=== PATIENT | female | born 1985 | race Caucasian/White ===

== ENCOUNTER 2016-07-31 11:27 | Inpatient (IN) | payer OTHER ==
[~2016-07-31] VITALS: Ht 170.2 cm; Wt 93.4 kg
[~2016-07-31 11:27] MED LIST: ADDERALL20 MG PO; ADDERALL30 MG PO; ADVIL,NUPRIN,M200 MG PO; AMBIEN10 MG; AMPHETAMINE SAL30 MG PO; ATARAX,VISTARIL25 MG PO; ATARAX,VISTARIL50 MG PO; AZITHROMYCIN250 MG1 PO; Adderall XR PO; BENTYL20 MG PO; CEFDINIR300 MG PO; CELEXA20 MG PO; CLARITIN10 MG PO; CLEOCIN150 MG PO; CLINDAMYCIN HC300 MG PO; CLONAZEPAM1 MG PO; COLACE100 MG PO; CYMBALTA60 MG PO; EFFEXOR25 MG PO; Flexeril PO; GABAPENTIN300 MG PO; GABAPENTIN800 MG PO; HALOPERIDOL5 MG PO; IMODIUM MS REL1 EACH PO; KLONOPIN1 M2 PO; KLONOPIN1 MG PO; KlonoPIN PO; LEVOTHYROXINE75 MCG PO; LYRICA75 MG PO; Levothroid,Synthroid PO; Medrol PO; Motrin PO; NAPROSYN500 MG PO; NATALCARE RX1 TABLET PO; NEURONTIN300 MG PO; NOHOMEMEDS; NORCO 5/3251 TABLET PO; OXYCODONE5 MG PO; OxyCODONE PO; PEPCID40 MG PO; PEPTO BISMOL240 ML PO; PREDNISONE20 MG PO; PRENATABS RX T1 EACH PO; PROZAC20 MG PO; Proventil,Ventolin H IH; RISPERDAL1 MG PO; SEROQUEL400 MG PO; SYNTHROID100 MCG PO; SYNTHROID75 MCG PO; Seroquel PO; TOPAMAX25 MG PO; TOPAMAX50 MG PO; TOPIRAMATE50 MG PO; ULTRACET1 TABLET PO; ULTRAM50 MG PO; VALIUM10 MG PO; VENTOLIN HFA18 GM; VENTOLIN HFA18 GM IH; WESTCORT15 G1 TP; XANAX1 MG PO; ZITHROMAX TRI-500 MG PO; ZOFRAN ODT4 MG PO; oxyCODONE PO
[2016-07-31 12:10] LABS: BASOPHIL COUNT 0.1 K/uL (0-0.1); EOSINOPHIL (%) 1.4 % (0-5); EOSINOPHIL COUNT 0.1 K/uL (0-0.3); HEMATOCRIT 43.1 % (36.0-46.0); IMMATURE GRANULOCYTE (%) 0.2 % (0.0-0.7); IMMATURE GRANULOCYTE COUNT 0.2 K/uL; LYMPHOCYTE COUNT 1.5 K/uL (1.0-2.8); MCHC 33.9 G/DL (30.0-36.0); MCV 88.7 FL (83-99); MEAN PLAT.VOLUME 11.6 uM^3 (9.5-12.4); MONOCYTE (%) 8.2 % (3-12); MONOCYTE COUNT 0.7 K/uL (0-0.8); NEUTROPHIL (%) 71.3 % (45-76); NEUTROPHIL COUNT 5.7 K/uL (1.8-6.4); PLATELET COUNT 170 K/uL (156-360); RBC DIS.WIDTH-CV 13.1 % (11.8-14.6); RBC DIS.WIDTH-SD 41.8 % (39-53); RED BLOOD COUNT 4.86 M/uL (3.80-5.20)
[2016-07-31 12:24] LABS: CHLORIDE 100 mEq/L (99-109); POTASSIUM 3.7 mEq/L (3.7-5.4); SODIUM 137 mEq/L (136-147)
[2016-07-31 12:27] LABS: D-DIMER ELISA 0.63 mg/L FEU (< 0.57); GLUCOSE 108 mg/dL (70-99)
[2016-07-31 12:28] LABS: ANION GAP 14 MEQ/L (2-14)
[2016-07-31 12:29] LABS: TOTAL BILIRUBIN 0.6 mg/dL (0.0-1.0)
[2016-07-31 12:30] LABS: ALKALINE PHOSPHATASE 47 IU/L (3-129); GFR ESTIMATE (CALCULATED) > 59 mL/min/
[2016-07-31 12:31] LABS: UREA NITROGEN (BUN) 7 mg/dL (9-23)
[2016-07-31 12:35] LABS: TROP-I INTERPRETATION NEGATIVE; TROPONIN-I < 0.01 ng/mL (0.0-0.30)
[2016-07-31] MEDS ORDERED: NEURONTIN400 MG PO (15:41)
[2016-07-31] MEDS ORDERED: PREDNISONE10 MG PO (15:43)
[2016-07-31] MEDS ORDERED: BENADRYL25 MG PO (15:44)
[2016-07-31] MEDS ORDERED: SYNTHROID100 MCG PO (15:44)
[2016-07-31] MEDS ORDERED: ADVIL,NUPRIN,M200 MG PO (15:44)
[2016-07-31] MEDS ORDERED: PROAIR HFA8.5 GM IH (15:45)
[2016-07-31] MEDS ORDERED: [UNRECOGNIZED DRUG - OTHER] TP (15:48)
[2016-07-31 20:38] VITALS: BP 128/70
[2016-07-31 22:25] LABS: INFLUENZA A VIRAL ANTIGEN NEGATIVE; INFLUENZA B VIRAL ANTIGEN NEGATIVE
[2016-07-31 23:13] LABS: METH RESISTANT S AUREUS PCR NEGATIVE (NEGATIVE)
[2016-07-31 23:14] LABS: PROBE CHECK PASS; SPECIMEN PROCESSING CONTROL PASS
[2016-07-31 23:41] LABS: ADD MIUA? NO; BILIRUBIN NEGATIVE; BLOOD NEGATIVE; COLOR YELLOW ((YELLOW)); GLUCOSE (STRIP) >=1000; KETONES NEGATIVE; LEUKOCYTES NEGATIVE; NITRITE NEGATIVE; PH, URINE 5.5 (5-8); PROTEIN (STRIP) NEGATIVE; UCUL ADDED? NO; UROBILINOGEN 0.2 MG/DL (0.2-1.0)
[2016-08-01] VITALS (8 sets, daily range): BP systolic 95–145; BP diastolic 54–72
[2016-08-01 06:23] LABS: CHLORIDE 106 MEQ/L (99-109); GFR ESTIMATE (CALCULATED) > 59 mL/min/; GLUCOSE 143 mg/dL (70-99); POTASSIUM 4.2 MEQ/L (3.7-5.4); SODIUM 139 MEQ/L (136-147); TOTAL BILIRUBIN 0.3 MG/DL (0.0-1.0); UREA NITROGEN (BUN) 7 mg/dL (9-23)
[2016-08-01 06:24] LABS: ALKALINE PHOSPHATASE 39 IU/L (3-129); ANION GAP 11 MEQ/L (2-14); EOSINOPHIL (%) 0 % (0-5); HEMATOCRIT 38.5 % (36.0-46.0); IMMATURE GRANULOCYTE (%) 0.3 % (0.0-0.7); LYMPHOCYTE COUNT 0.9 K/uL (1.0-2.8); MCH 30.1 PG (29.0-34.0); MCHC 32.7 G/DL (30.0-36.0); MCV 91.9 FL (83-99); MEAN PLAT.VOLUME 12.4 uM^3 (9.5-12.4); MONOCYTE (%) 3.7 % (3-12); MONOCYTE COUNT 0.4 K/uL (0-0.8); NEUTROPHIL (%) 87.8 % (45-76); NEUTROPHIL COUNT 9.4 K/uL (1.8-6.4); PLATELET COUNT 177 K/uL (156-360); RBC DIS.WIDTH-CV 13.5 % (11.8-14.6); RBC DIS.WIDTH-SD 44.7 % (39-53); RED BLOOD COUNT 4.19 M/uL (3.80-5.20); SAMPLE HEMOLYSIS CHECK 0; SAMPLE ICTERIC CHECK 0; SAMPLE LIPEMIA CHECK 0; WHITE BLOOD COUNT 10.7 K/uL (4.1-10.2)
[2016-08-01 07:56] LABS: INTERNAL CONTROL VALID? YES
[2016-08-02 03:50] VITALS: BP 106/61
[2016-08-02 07:41] VITALS: BP 117/73
[2016-08-02 11:18] LABS: QUANTITATIVE HCG < 4.0 MIU/ML
[2016-08-02 12:47] VITALS: BP 123/76
[2016-08-02 17:04] VITALS: BP 107/60
[2016-08-02 19:45] VITALS: BP 119/63
[2016-08-02 23:00] VITALS: BP 135/76
[2016-08-03 03:25] VITALS: BP 172/91
[2016-08-03 07:35] VITALS: BP 159/69
[2016-08-03 11:26] VITALS: BP 142/92
[2016-08-03 16:36] VITALS: BP 146/79
[2016-08-03 19:44] VITALS: BP 154/82
[2016-08-03 23:39] VITALS: BP 190/88
[2016-08-04 03:27] VITALS: BP 167/105
[2016-08-04 07:42] VITALS: BP 138/80
[2016-08-04 08:00] VITALS: BP 134/80
[2016-08-04 11:36] VITALS: BP 156/79
[2016-08-04 16:00] VITALS: BP 158/89
[2016-08-04 19:21] VITALS: BP 172/75
[2016-08-05] VITALS (7 sets, daily range): BP systolic 131–173; BP diastolic 58–100
[2016-08-06] VITALS (7 sets, daily range): BP systolic 148–167; BP diastolic 67–91
[2016-08-06 06:29] LABS: ANION GAP 7 MEQ/L (2-14); CHLORIDE 100 MEQ/L (99-109); GFR ESTIMATE (CALCULATED) > 59 mL/min/; GLUCOSE 128 mg/dL (70-99); POTASSIUM 4.3 MEQ/L (3.7-5.4); SAMPLE HEMOLYSIS CHECK 0; SAMPLE ICTERIC CHECK 0; SAMPLE LIPEMIA CHECK 0; SODIUM 139 MEQ/L (136-147)
[2016-08-06 06:38] LABS: UREA NITROGEN (BUN) 22 mg/dL (9-23)
[2016-08-07 04:11] VITALS: BP 166/81
[2016-08-07 06:41] LABS: ANION GAP 7 MEQ/L (2-14); CHLORIDE 98 MEQ/L (99-109); GFR ESTIMATE (CALCULATED) > 59 mL/min/; GLUCOSE 93 mg/dL (70-99); POTASSIUM 4.1 MEQ/L (3.7-5.4); SAMPLE HEMOLYSIS CHECK 0; SAMPLE ICTERIC CHECK 0; SAMPLE LIPEMIA CHECK 0; SODIUM 139 MEQ/L (136-147); UREA NITROGEN (BUN) 22 mg/dL (9-23)
[2016-08-07 07:40] VITALS: BP 165/82
[2016-08-07] MEDS ORDERED: ACIDOPHILUS LA1 EACH PO (10:54)
[2016-08-07] MEDS ORDERED: NAPROXEN500 MG PO (10:54)
[2016-08-07] MEDS ORDERED: GUAIFENESIN WI120 M1 PO (10:54)
[2016-08-07] MEDS ORDERED: PANTOPRAZOLE SO40 MG PO (10:54)
[2016-08-07] MEDS ORDERED: ADVAIR HFA120 INHALA IH (10:54)
[2016-08-07] MEDS ORDERED: MUCINEX600 MG PO (10:54)
[2016-08-07] MEDS ORDERED: PREDNISONE10 M1 PO (10:54)
[2016-08-07] MEDS ORDERED: AUGMENTIN875 MG PO (10:54)
[2016-08-07] MEDS ORDERED: BENZONATATE100 MG PO (10:54)
[2016-08-07] MEDS ORDERED: MONTELUKAST SOD10 MG PO (10:54)
[2016-08-07] MEDS ORDERED: SPIRIVA RESPIMAT4 GM IH (10:54)
[2016-08-07 11:49] VITALS: BP 138/74
[2016-08-07] MEDS ORDERED: PROAIR HFA8.5 GM IH (15:15)
[2016-08-07] MEDS ORDERED: TIZANIDINE HCL4 MG PO ×2 (15:32→16:09)
[2016-08-07] MEDS ORDERED: GABAPENTIN600 MG PO (16:03)
[2016-08-07 16:33] VITALS: BP 123/76
== END 2016-08-07 18:18 | disposition home health service (06) | DRG 871 ==
LOC: EME 11:27 → 3EAST 16:40 → EDOF 16:40 → 3EAST 20:21
PROVIDERS: Emergency Medicine; Hospitalist; Internal Medicine
DX: A40.1 Sepsis due to streptococcus, group B (principal); J15.3 Pneumonia due to streptococcus, group B; J45.41 Moderate persistent asthma with (acute) exacerbation; A09 Infectious gastroenteritis and colitis, unspecified; E66.9 Obesity, unspecified; F17.200 Nicotine dependence, unspecified, uncomplicated; F41.9 Anxiety disorder, unspecified; F32.9 Major depressive disorder, single episode, unspecified; E03.9 Hypothyroidism, unspecified; K21.9 Gastro-esophageal reflux disease without esophagitis; K59.1 Functional diarrhea; K58.9 Irritable bowel syndrome, unspecified; Z68.32 Body mass index [BMI] 32.0-32.9, adult
CPT/HCPCS: 71010; 71020; 71275; 74249; 80048; 80053; 80202; 81003; 83630; 83880; 84484; 84702; 85025; 85379; 87040; 87070; 87177; 87205; 87329; 87449; 87493; 87502; 87506; 87641; 87651 90; 93005; 93971; 94640; 94640 76; 94644; 94799; 99202; 99281; 99285; J0456; J0692; J1100; J1650; J1885; J2270; J2405; J2920; J2930; J3370; J3475; J7030; J7050; J7512; J7644

== ENCOUNTER 2016-08-13 12:36 | Emergency (ER) | payer OTHER ==
[~2016-08-13] VITALS: Ht 170.2 cm; Wt 95.9 kg
[~2016-08-13 12:36] MED LIST changes: +ACIDOPHILUS LA1 EACH PO; +ADVAIR HFA120 INHALA IH; +AUGMENTIN875 MG PO; +BENADRYL25 MG PO; +BENZONATATE100 MG PO; +GABAPENTIN600 MG PO; +GUAIFENESIN WI120 M1 PO; +MONTELUKAST SOD10 MG PO; +MUCINEX600 MG PO; +NAPROXEN500 MG PO; +NEURONTIN400 MG PO; +PANTOPRAZOLE SO40 MG PO; +PREDNISONE10 M1 PO; +PREDNISONE10 MG PO; +PROAIR HFA8.5 GM IH; +SPIRIVA RESPIMAT4 GM IH; +TIZANIDINE HCL4 MG PO; +[UNRECOGNIZED DRUG - OTHER] TP
[2016-08-13 16:01] LABS: HEMATOCRIT 44.9 % (36.0-46.0); MCH 30.1 PG (29.0-34.0); MCHC 33.2 G/DL (30.0-36.0); MCV 90.7 FL (83-99); PLATELET COUNT 209 K/uL (156-360); RBC DIS.WIDTH-CV 13.7 % (11.8-14.6); RED BLOOD COUNT 4.95 M/uL (3.80-5.20); WHITE BLOOD COUNT 12.2 K/uL (4.1-10.2)
[2016-08-13 16:08] LABS: CHLORIDE 111 mEq/L (99-109); POTASSIUM 3.8 mEq/L (3.7-5.4); SODIUM 144 mEq/L (136-147)
[2016-08-13 16:10] LABS: GLUCOSE 123 mg/dL (70-99)
[2016-08-13 16:11] LABS: ANION GAP 14 MEQ/L (2-14)
[2016-08-13 16:12] LABS: TOTAL BILIRUBIN 0.1 mg/dL (0.0-1.0)
[2016-08-13 16:13] LABS: ALKALINE PHOSPHATASE 45 IU/L (3-129)
[2016-08-13 16:14] LABS: GFR ESTIMATE (CALCULATED) > 59 mL/min/
[2016-08-13 16:15] LABS: UREA NITROGEN (BUN) 14 mg/dL (9-23)
[2016-08-13 16:17] LABS: CREATINE KINASE 24 IU/L (1-294); LIPASE 126 U/L (1.0-51.0)
[2016-08-13 16:23] LABS: QUANTITATIVE HCG < 4.0 MIU/ML
[2016-08-13 17:05] LABS: AMYLASE 115 IU/L (1-118)
[2016-08-13 17:21] LABS: ADD MIUA? YES; BILIRUBIN NEGATIVE; BLOOD SMALL; COLOR YELLOW ((YELLOW)); GLUCOSE (STRIP) 50; KETONES 5; LEUKOCYTES NEGATIVE; NITRITE NEGATIVE; PROTEIN (STRIP) 30; SPECIFIC GRAVITY 1.029 (1.000-1.030); UROBILINOGEN 0.2 MG/DL (0.2-1.0)
[2016-08-13 17:24] LABS: BACTERIA NONE SEEN /HPF; CASTS NONE SEEN /LPF; CRYSTALS NONE SEEN; EPITHELIAL CELLS RARE /HPF; MUCUS TRACE /LPF; UCUL ADDED? NO; WHITE BLOOD CELLS NONE SEEN /HPF (0-5)
[2016-08-13 18:03] LABS: INFLUENZA A VIRAL ANTIGEN NEGATIVE; INFLUENZA B VIRAL ANTIGEN NEGATIVE
[2016-08-13] MEDS ORDERED: ZOFRAN4 MG PO (18:31)
[2016-08-13] MEDS ORDERED: TRAMADOL HCL50 MG PO (18:31)
[2016-08-13 18:44] VITALS: BP 123/79
== END 2016-08-13 18:48 | disposition home or self-care (01) ==
LOC: EME 12:36
PROVIDERS: Physician Assistant
DX: N94.6 Dysmenorrhea, unspecified (principal); R10.9 Unspecified abdominal pain; M79.1 Myalgia
CPT/HCPCS: 74177; 80053; 81003; 82150; 82550; 83690; 84702; 85027; 87502; 99281; 99284; J1885; J2405; J7030

== ENCOUNTER 2016-08-18 20:23 | Emergency (ER) | payer OTHER ==
[~2016-08-18] VITALS: Ht 167.6 cm; Wt 95.2 kg
[~2016-08-18 20:23] MED LIST changes: +TRAMADOL HCL50 MG PO; +ZOFRAN4 MG PO
[2016-08-18 21:56] LABS: HEMATOCRIT 46.7 % (36.0-46.0); MCH 29.9 PG (29.0-34.0); MCHC 33.8 G/DL (30.0-36.0); MCV 88.3 FL (83-99); MEAN PLAT.VOLUME 10.2 uM^3 (9.5-12.4); PLATELET COUNT 184 K/uL (156-360); RBC DIS.WIDTH-CV 14.1 % (11.8-14.6); RBC DIS.WIDTH-SD 45.1 % (39-53); RED BLOOD COUNT 5.29 M/uL (3.80-5.20); WHITE BLOOD COUNT 8.6 K/uL (4.1-10.2)
[2016-08-18 22:04] LABS: CHLORIDE 101 mEq/L (99-109); POTASSIUM 4.1 mEq/L (3.7-5.4); SODIUM 141 mEq/L (136-147)
[2016-08-18 22:06] LABS: GLUCOSE 74 mg/dL (70-99)
[2016-08-18 22:08] LABS: ANION GAP 14 MEQ/L (2-14)
[2016-08-18 22:10] LABS: GFR ESTIMATE (CALCULATED) > 59 mL/min/
[2016-08-18 22:11] LABS: UREA NITROGEN (BUN) 15 mg/dL (9-23)
[2016-08-18 22:12] LABS: URIC ACID 11.1 mg/dL (3.1-9.2)
[2016-08-18 22:37] LABS: C-REACTIVE PROTEIN 6.2 MG/L (0-10)
[2016-08-18] MEDS ORDERED: INDOCIN50 MG PO (22:58)
[2016-08-18] MEDS ORDERED: ROXICODONE5 MG PO (22:58)
[2016-08-18 23:07] VITALS: BP 123/93
== END 2016-08-18 23:39 | disposition home or self-care (01) ==
LOC: EME 20:23 → EXP 20:23
PROVIDERS: Physician Assistant
DX: M25.561 Pain in right knee (principal); M25.562 Pain in left knee; E79.0 Hyperuricemia without signs of inflammatory arthritis and tophaceous disease; M25.461 Effusion, right knee; M25.462 Effusion, left knee; Z87.891 Personal history of nicotine dependence
CPT/HCPCS: 73564; 80048; 84550; 85027; 86140; 99281; 99285

== ENCOUNTER 2017-05-05 06:18 | Emergency (ER) | payer OTHER ==
[~2017-05-05] VITALS: Ht 170.2 cm; Wt 91.4 kg
[~2017-05-05 06:18] MED LIST changes: +INDOCIN50 MG PO; +ROXICODONE5 MG PO
[2017-05-05] MEDS ORDERED: ZOFRAN4 MG PO (06:55)
[2017-05-05] MEDS ORDERED: PEN-VEE K,VEET500 MG PO (06:55)
[2017-05-05 07:19] VITALS: BP 125/96
== END 2017-05-05 07:19 | disposition home or self-care (01) ==
LOC: EME 06:18
DX: H66.92 Otitis media, unspecified, left ear (principal); F90.9 Attention-deficit hyperactivity disorder, unspecified type; Z87.891 Personal history of nicotine dependence; Z88.8 Allergy status to other drugs, medicaments and biological substances
CPT/HCPCS: 99281; 99283

== ENCOUNTER 2017-06-26 14:34 | Inpatient (IN) | payer OTHER ==
[~2017-06-26] VITALS: Ht 170.2 cm; Wt 92.5 kg
[~2017-06-26 14:34] MED LIST changes: +PEN-VEE K,VEET500 MG PO
[2017-06-26 16:21] LABS: HEMATOCRIT 47.9 % (36.0-46.0); HEMOGLOBIN 16.2 G/DL (11.9-15.5); MCHC 33.8 G/DL (30.0-36.0); MCV 91.8 FL (83-99); PLATELET COUNT 248 K/uL (156-360); RBC DIS.WIDTH-CV 13.2 % (11.8-14.6); RBC DIS.WIDTH-SD 44.5 % (39-53); RED BLOOD COUNT 5.22 M/uL (3.80-5.20); WHITE BLOOD COUNT 9.4 K/uL (4.1-10.2)
[2017-06-26 16:30] LABS: CHLORIDE 96 mEq/L (99-109); POTASSIUM 3.9 mEq/L (3.7-5.4); SODIUM 138 mEq/L (136-147)
[2017-06-26 16:32] LABS: GLUCOSE 97 mg/dL (70-99)
[2017-06-26 16:36] LABS: CREATININE 0.8 mg/dL (0.6-1.3); GFR ESTIMATE (CALCULATED) > 59 mL/min/
[2017-06-26 16:37] LABS: UREA NITROGEN (BUN) 12 mg/dL (9-23)
[2017-06-26 16:43] LABS: APPEARANCE TURBID ((CLEAR)); BILIRUBIN SMALL; BLOOD NEGATIVE; COLOR AMBER ((YELLOW)); GLUCOSE (STRIP) NEGATIVE; KETONES 20; LEUKOCYTES NEGATIVE; NITRITE NEGATIVE; PROTEIN (STRIP) 100; SPECIFIC GRAVITY 1.031 (1.000-1.030)
[2017-06-26 16:57] LABS: AMPHETAMINE NEGATIVE (500 ng/mL); BARBITURATES NEGATIVE (200 ng/mL); BENZODIAZEPINES PRESUMPTIVE POSITIVE (150 ng/mL); BUPRENORPHINE NEGATIVE (10 ng/mL); COCAINE NEGATIVE (150 ng/mL); METHADONE NEGATIVE (200 ng/mL); METHAMPHETAMINE PRESUMPTIVE POSITIVE (500 ng/mL); OPIATES (MORPHINE) NEGATIVE (100 ng/mL); OXYCODONE NEGATIVE (100 ng/mL); PHENCYCLIDINE NEGATIVE (25 ng/mL); PROPOXYPHENE NEGATIVE (300 ng/mL); THC CANNABINOIDS PRESUMPTIVE POSITIVE (50 ng/mL); TRICYCLIC ANTIDEPRESSANTS NEGATIVE (300 ng/mL)
[2017-06-26 17:07] LABS: AMORPHOUS URATES CRYSTALS 3+; BACTERIA RARE /HPF; EPITHELIAL CELLS RARE /HPF; MUCUS RARE /LPF; RED BLOOD CELLS RARE /HPF (0-5); UCUL ADDED? NO; WHITE BLOOD CELLS RARE /HPF (0-5)
[2017-06-26 17:17] LABS: SERUM ETHYL ALCOHOL < 10 mg/dL
[2017-06-26 17:23] LABS: BENZODIAZEPINES, URINE SCREEN Negative (200 ng/mL)
[2017-06-26 21:21] VITALS: BP 138/90
[2017-06-27 01:47] LABS: SOURCE SWAB
[2017-06-27] MEDS ORDERED: PROZAC10 MG PO (03:03)
[2017-06-27] MEDS ORDERED: ADDERALL20 MG PO (03:05)
[2017-06-27] MEDS ORDERED: LEVOTHYROXINE125 MCG PO (03:06)
[2017-06-27] MEDS ORDERED: KLONOPIN1 MG PO (03:07)
[2017-06-27] MEDS ORDERED: GABAPENTIN600 MG PO (03:08)
[2017-06-27] MEDS ORDERED: LOVASTATIN20 MG PO (03:10)
[2017-06-27] MEDS ORDERED: FENOFIBRATE160 M1 PO (03:11)
[2017-06-27 07:56] VITALS: BP 116/67
[2017-06-27 10:08] LABS: TREPONEMA ANTIBODY NEGATIVE (NEGATIVE)
[2017-06-27 15:24] VITALS: BP 120/77
[2017-06-28 07:43] VITALS: BP 120/79
[2017-06-28 15:17] VITALS: BP 123/58
[2017-06-29 00:48] VITALS: BP 121/74
[2017-06-29 07:38] VITALS: BP 118/63
[2017-06-29 10:36] VITALS: BP 116/64
[2017-06-29 15:52] VITALS: BP 125/76
[2017-06-29 16:38] VITALS: BP 123/61
[2017-06-30 08:09] VITALS: BP 93/51
[2017-06-30 15:24] VITALS: BP 112/76
[2017-07-01 07:24] VITALS: BP 116/57
[2017-07-01 15:37] VITALS: BP 128/61
[2017-07-02 07:56] VITALS: BP 108/51
[2017-07-02 15:26] VITALS: BP 112/57
[2017-07-03 07:37] VITALS: BP 91/54
[2017-07-03] MEDS ORDERED: GABAPENTIN600 MG PO (08:56)
[2017-07-03] MEDS ORDERED: NALTREXONE HCL50 MG PO (08:56)
[2017-07-03] MEDS ORDERED: ATARAX,VISTARIL25 MG PO (10:30)
== END 2017-07-03 13:25 | disposition home or self-care (01) | DRG 881 ==
LOC: EME 14:34 → 1WEST 19:57 → EDOF 19:57 → ENRESERV 21:11 → 1WEST 21:13
PROVIDERS: Emergency Medicine; Psychiatry & Neurology Psychiatry
DX: F32.9 Major depressive disorder, single episode, unspecified (principal); F41.0 Panic disorder [episodic paroxysmal anxiety]; E03.9 Hypothyroidism, unspecified; K21.9 Gastro-esophageal reflux disease without esophagitis; F10.239 Alcohol dependence with withdrawal, unspecified; F60.3 Borderline personality disorder; F12.10 Cannabis abuse, uncomplicated; R45.851 Suicidal ideations; F41.8 Other specified anxiety disorders; Z91.5 Personal history of self-harm; Z88.6 Allergy status to analgesic agent; Z88.8 Allergy status to other drugs, medicaments and biological substances; Z91.018 Allergy to other foods; Z81.8 Family history of other mental and behavioral disorders; Z87.891 Personal history of nicotine dependence
CPT/HCPCS: 80048; 81003; 84702; 84999; 85027; 86780; 87210; 87491; 87591; 90839; 97150 GO; 97165 GO; 99281; 99285; G0480; J0696; J2060; J7030

== ENCOUNTER 2017-07-24 15:15 | Emergency (ER) | payer OTHER ==
[~2017-07-24] VITALS: Ht 170.2 cm; Wt 87.1 kg
[~2017-07-24 15:15] MED LIST changes: +FENOFIBRATE160 M1 PO; +LEVOTHYROXINE125 MCG PO; +LOVASTATIN20 MG PO; +NALTREXONE HCL50 MG PO; +PROZAC10 MG PO
[2017-07-24 16:18] LABS: HEMATOCRIT 46.1 % (36.0-46.0); HEMOGLOBIN 15.7 G/DL (11.9-15.5); MCH 31.2 PG (29.0-34.0); MCHC 34.1 G/DL (30.0-36.0); MCV 91.5 FL (83-99); PLATELET COUNT 205 K/uL (156-360); RBC DIS.WIDTH-CV 13.2 % (11.8-14.6); RBC DIS.WIDTH-SD 44.4 % (39-53); RED BLOOD COUNT 5.04 M/uL (3.80-5.20)
[2017-07-24 16:26] LABS: ALBUMIN 4.1 g/dL (3.2-4.8); CHLORIDE 103 mEq/L (99-109); POTASSIUM 3.2 mEq/L (3.7-5.4)
[2017-07-24 16:27] LABS: SODIUM 143 mEq/L (136-147)
[2017-07-24 16:29] LABS: GLUCOSE 82 mg/dL (70-99); TOTAL PROTEIN 8.4 g/dL (6.4-8.3)
[2017-07-24 16:31] LABS: TOTAL BILIRUBIN 0.4 mg/dL (0.0-1.0)
[2017-07-24 16:32] LABS: ALKALINE PHOSPHATASE 73 IU/L (3-129); SERUM ETHYL ALCOHOL 209 mg/dL
[2017-07-24 16:33] LABS: CREATININE 0.8 mg/dL (0.6-1.3); GFR ESTIMATE (CALCULATED) > 59 mL/min/
[2017-07-24 16:34] LABS: AST (GOT) 84 IU/L (2-34); UREA NITROGEN (BUN) 8 mg/dL (9-23)
[2017-07-24 16:35] LABS: ALT (GPT) 56 IU/L (3-49)
[2017-07-24 18:29] LABS: APPEARANCE CLOUDY ((CLEAR)); BILIRUBIN NEGATIVE; BLOOD NEGATIVE; COLOR AMBER ((YELLOW)); GLUCOSE (STRIP) NEGATIVE; KETONES NEGATIVE; LEUKOCYTES NEGATIVE; NITRITE NEGATIVE; PROTEIN (STRIP) 100; SPECIFIC GRAVITY 1.028 (1.000-1.030)
[2017-07-24 18:48] LABS: AMORPHOUS URATES CRYSTALS 1+; BACTERIA 2+ /HPF; EPITHELIAL CELLS 3+ /HPF; HYALINE CASTS 0-5 /LPF; MUCUS 2+ /LPF; RED BLOOD CELLS 0-5 /HPF (0-5); UCUL ADDED? YES; WHITE BLOOD CELLS 0-5 /HPF (0-5)
[2017-07-24 18:49] LABS: AMPHETAMINE PRESUMPTIVE POSITIVE (500 ng/mL); BARBITURATES NEGATIVE (200 ng/mL); BENZODIAZEPINES PRESUMPTIVE POSITIVE (150 ng/mL); BUPRENORPHINE NEGATIVE (10 ng/mL); COCAINE NEGATIVE (150 ng/mL); METHADONE NEGATIVE (200 ng/mL); METHAMPHETAMINE PRESUMPTIVE POSITIVE (500 ng/mL); OPIATES (MORPHINE) NEGATIVE (100 ng/mL); OXYCODONE NEGATIVE (100 ng/mL); PHENCYCLIDINE NEGATIVE (25 ng/mL); PROPOXYPHENE NEGATIVE (300 ng/mL); THC CANNABINOIDS PRESUMPTIVE POSITIVE (50 ng/mL); TRICYCLIC ANTIDEPRESSANTS PRESUMPTIVE POSITIVE (300 ng/mL)
[2017-07-24 19:39] LABS: BENZODIAZEPINES, URINE SCREEN POSITIVE (200 ng/mL)
[2017-07-24 22:34] VITALS: BP 118/99
== END 2017-07-24 22:34 | disposition home or self-care (01) ==
LOC: EME 15:15
PROVIDERS: Physician Assistant
DX: F10.10 Alcohol abuse, uncomplicated (principal); F32.9 Major depressive disorder, single episode, unspecified; F41.9 Anxiety disorder, unspecified; F60.3 Borderline personality disorder; F31.9 Bipolar disorder, unspecified; K21.9 Gastro-esophageal reflux disease without esophagitis; E03.9 Hypothyroidism, unspecified; Z87.891 Personal history of nicotine dependence; Z88.6 Allergy status to analgesic agent; Z88.8 Allergy status to other drugs, medicaments and biological substances
CPT/HCPCS: 80053; 81003; 84999; 85027; 87086; 90839; 99281; 99285; G0480

== ENCOUNTER 2017-08-31 18:36 | Observation (INO) | payer OTHER ==
[~2017-08-31] VITALS: Ht 170.2 cm; Wt 102.5 kg
[2017-08-31 20:17] LABS: HEMOGLOBIN 14.9 G/DL (11.9-15.5); MCH 32.3 PG (29.0-34.0); MCHC 33.1 G/DL (30.0-36.0); MCV 97.6 FL (83-99); PLATELET COUNT 161 K/uL (156-360); RBC DIS.WIDTH-CV 14.3 % (11.8-14.6); RBC DIS.WIDTH-SD 51.5 % (39-53); RED BLOOD COUNT 4.61 M/uL (3.80-5.20); WHITE BLOOD COUNT 8.1 K/uL (4.1-10.2)
[2017-08-31 20:31] LABS: CHLORIDE 106 mEq/L (99-109); POTASSIUM 3.9 mEq/L (3.7-5.4); SODIUM 140 mEq/L (136-147)
[2017-08-31 20:32] LABS: MAGNESIUM 1.9 mg/dL (1.3-2.7)
[2017-08-31 20:34] LABS: GLUCOSE 103 mg/dL (70-99); TOTAL PROTEIN 8.2 g/dL (6.4-8.3)
[2017-08-31 20:36] LABS: TOTAL BILIRUBIN 0.4 mg/dL (0.0-1.0)
[2017-08-31 20:37] LABS: SERUM ETHYL ALCOHOL < 10 mg/dL
[2017-08-31 20:38] LABS: ALKALINE PHOSPHATASE 83 IU/L (3-129); CREATININE 0.8 mg/dL (0.6-1.3); GFR ESTIMATE (CALCULATED) > 59 mL/min/
[2017-08-31 20:39] LABS: AST (GOT) 230 IU/L (2-34)
[2017-08-31 20:40] LABS: UREA NITROGEN (BUN) 8 mg/dL (9-23)
[2017-08-31 20:41] LABS: ALT (GPT) 193 IU/L (3-49); SALICYLATE < 5.0 MG/DL (15-30)
[2017-08-31 20:42] LABS: ACETAMINOPHEN (TYLENOL) < 10 mcg/mL (10-30); CREATINE KINASE 255 IU/L (1-294)
[2017-08-31 20:43] LABS: TROP-I INTERPRETATION NEGATIVE; TROPONIN-I < 0.01 ng/mL (0.0-0.30)
[2017-08-31 21:26] LABS: APPEARANCE CLEAR ((CLEAR)); BILIRUBIN NEGATIVE; BLOOD NEGATIVE; COLOR YELLOW ((YELLOW)); GLUCOSE (STRIP) NEGATIVE; KETONES NEGATIVE; LEUKOCYTES NEGATIVE; NITRITE NEGATIVE; PROTEIN (STRIP) 30; SPECIFIC GRAVITY 1.018 (1.000-1.030)
[2017-08-31 21:47] LABS: AMPHETAMINE PRESUMPTIVE POSITIVE (500 ng/mL); BENZODIAZEPINES NEGATIVE (150 ng/mL); COCAINE NEGATIVE (150 ng/mL); METHADONE NEGATIVE (200 ng/mL); METHAMPHETAMINE NEGATIVE (500 ng/mL); OPIATES (MORPHINE) NEGATIVE (100 ng/mL); PHENCYCLIDINE NEGATIVE (25 ng/mL); THC CANNABINOIDS PRESUMPTIVE POSITIVE (50 ng/mL); TRICYCLIC ANTIDEPRESSANTS NEGATIVE (300 ng/mL)
[2017-08-31 21:48] LABS: BARBITURATES NEGATIVE (200 ng/mL); BUPRENORPHINE NEGATIVE (10 ng/mL); OXYCODONE NEGATIVE (100 ng/mL); PROPOXYPHENE NEGATIVE (300 ng/mL)
[2017-08-31 22:11] LABS: QUANTITATIVE HCG < 4.0 MIU/ML
[2017-08-31 22:23] LABS: CARBON DIOXIDE (BICARBONATE) 25.3 MEQ/L (20-31)
[2017-08-31] MEDS ORDERED: CEPHALEXIN500 MG PO (22:24)
[2017-08-31] MEDS ORDERED: CLONAZEPAM1 MG PO (22:25)
[2017-08-31] MEDS ORDERED: FLUOXETINE HCL10 MG PO (22:26)
[2017-08-31] MEDS ORDERED: GABAPENTIN600 MG PO ×2 (22:31→22:33)
[2017-09-01 01:09] VITALS: BP 121/81
[2017-09-01 02:50] LABS: TROP-I INTERPRETATION NEGATIVE; TROPONIN-I < 0.01 ng/mL (0.0-0.30)
[2017-09-01 03:34] VITALS: BP 105/65
[2017-09-01 06:36] LABS: TROP-I INTERPRETATION NEGATIVE; TROPONIN-I < 0.01 ng/mL (0.0-0.30)
[2017-09-01 08:15] VITALS: BP 115/70
[2017-09-01 10:59] LABS: HEPATITIS B SURFACE ANTIGEN Nonreactive
[2017-09-01 11:11] LABS: HEPATITIS B SURFACE ANTIBODY REACTIVE
[2017-09-01 11:34] LABS: ALBUMIN 3.4 G/DL (3.2-4.8); ALKALINE PHOSPHATASE 54 IU/L (3-129); ALT (GPT) 122 IU/L (3-49); AST (GOT) 133 IU/L (2-34); CHLORIDE 106 MEQ/L (99-109); CREATININE 0.7 MG/DL (0.6-1.3); GFR ESTIMATE (CALCULATED) > 59 mL/min/; GLUCOSE 106 mg/dL (70-99); POTASSIUM 3.8 MEQ/L (3.7-5.4); SODIUM 141 MEQ/L (136-147); TOTAL BILIRUBIN 0.6 MG/DL (0.0-1.0); TOTAL PROTEIN 6.8 G/DL (6.4-8.3); UREA NITROGEN (BUN) 7 mg/dL (9-23)
[2017-09-01 12:20] VITALS: BP 122/74
[2017-09-01 12:32] LABS: HEPATITIS C ANTIBODY REACTIVE
[2017-09-01 16:13] VITALS: BP 102/60
[2017-09-01 19:30] VITALS: BP 119/77
[2017-09-02] VITALS: BP 119/79
[2017-09-02 03:53] VITALS: BP 129/90
[2017-09-02 08:30] VITALS: BP 135/83
== END 2017-09-02 15:01 | disposition home or self-care (01) ==
LOC: EME 18:36 → 5WEST 22:17 → EDOF 22:17 → ENRESERV 22:24 → 5WEST 09-01 00:50
PROVIDERS: Emergency Medicine; Hospitalist; Physician Assistant Medical
DX: T50.901A Poisoning by unspecified drugs, medicaments and biological substances, accidental (unintentional), initial encounter (principal); M25.561 Pain in right knee; F12.10 Cannabis abuse, uncomplicated; F13.10 Sedative, hypnotic or anxiolytic abuse, uncomplicated; B19.20 Unspecified viral hepatitis C without hepatic coma; R79.89 Other specified abnormal findings of blood chemistry; F19.10 Other psychoactive substance abuse, uncomplicated; F10.10 Alcohol abuse, uncomplicated; F41.9 Anxiety disorder, unspecified; F32.9 Major depressive disorder, single episode, unspecified; R42 Dizziness and giddiness; F60.3 Borderline personality disorder; E03.9 Hypothyroidism, unspecified; J45.909 Unspecified asthma, uncomplicated; F90.9 Attention-deficit hyperactivity disorder, unspecified type; Z87.01 Personal history of pneumonia (recurrent); G40.909 Epilepsy, unspecified, not intractable, without status epilepticus; Z87.891 Personal history of nicotine dependence; Z82.49 Family history of ischemic heart disease and other diseases of the circulatory system; Z83.3 Family history of diabetes mellitus
CPT/HCPCS: 70450; 71045; 73560; 76705; 80053; 81003; 81025; 82550; 82803; 83690; 83735; 84484; 84702; 84999; 85027; 86706; 86803; 87340; 87641; 93005; 95819; 99281; 99285; G0378; G0480; J1644; J2060; J2250; J2405; J7030

== ENCOUNTER 2017-11-07 13:03 | Emergency (ER) | payer OTHER ==
[~2017-11-07] VITALS: Ht 170.2 cm; Wt 102.3 kg
[~2017-11-07 13:03] MED LIST changes: +CEPHALEXIN500 MG PO; +FLUOXETINE HCL10 MG PO
[2017-11-07 13:34] LABS: HEMATOCRIT 41.7 % (36.0-46.0); HEMOGLOBIN 14.3 G/DL (11.9-15.5); MCH 32.9 PG (29.0-34.0); MCHC 34.3 G/DL (30.0-36.0); MCV 95.9 FL (83-99); PLATELET COUNT 150 K/uL (156-360); RBC DIS.WIDTH-CV 12.8 % (11.8-14.6); RBC DIS.WIDTH-SD 45.5 % (39-53); RED BLOOD COUNT 4.35 M/uL (3.80-5.20); WHITE BLOOD COUNT 6.4 K/uL (4.1-10.2)
[2017-11-07 13:42] LABS: CHLORIDE 99 mEq/L (99-109); POTASSIUM 3.6 mEq/L (3.7-5.4); SODIUM 138 mEq/L (136-147)
[2017-11-07 13:44] LABS: GLUCOSE 98 mg/dL (70-99)
[2017-11-07 13:48] LABS: CREATININE 0.8 mg/dL (0.6-1.3); GFR ESTIMATE (CALCULATED) > 59 mL/min/
[2017-11-07 13:49] LABS: UREA NITROGEN (BUN) 13 mg/dL (9-23)
[2017-11-07 18:55] LABS: D-DIMER ELISA < 150.00 ng/mLDDU (<230)
[2017-11-07] MEDS ORDERED: FLEXERIL10 MG PO (21:01)
[2017-11-07 21:21] VITALS: BP 101/59
== END 2017-11-07 21:21 | disposition home or self-care (01) ==
LOC: EME 13:03
PROVIDERS: Emergency Medicine Emergency Medical Services
DX: T40.601A Poisoning by unspecified narcotics, accidental (unintentional), initial encounter (principal); J96.90 Respiratory failure, unspecified, unspecified whether with hypoxia or hypercapnia; R41.82 Altered mental status, unspecified; E86.0 Dehydration; R07.89 Other chest pain; F19.10 Other psychoactive substance abuse, uncomplicated; I10 Essential (primary) hypertension; E03.9 Hypothyroidism, unspecified; K21.9 Gastro-esophageal reflux disease without esophagitis; J45.909 Unspecified asthma, uncomplicated; G47.30 Sleep apnea, unspecified; Z87.891 Personal history of nicotine dependence; Z91.018 Allergy to other foods; Z88.6 Allergy status to analgesic agent; Z88.8 Allergy status to other drugs, medicaments and biological substances
CPT/HCPCS: 71046; 80048; 85027; 85379; 99281; 99285; J7040

== ENCOUNTER 2017-12-06 03:08 | Emergency (ER) | payer OTHER ==
[~2017-12-06] VITALS: Ht 170.2 cm; Wt 113.5 kg
[~2017-12-06 03:08] MED LIST changes: +FLEXERIL10 MG PO
[2017-12-06 05:22] LABS: HEMATOCRIT 39.5 % (36.0-46.0); HEMOGLOBIN 13.5 G/DL (11.9-15.5); MCH 32.8 PG (29.0-34.0); MCHC 34.2 G/DL (30.0-36.0); MCV 95.9 FL (83-99); PLATELET COUNT 156 K/uL (156-360); RBC DIS.WIDTH-CV 13.2 % (11.8-14.6); RBC DIS.WIDTH-SD 46.1 % (39-53); RED BLOOD COUNT 4.12 M/uL (3.80-5.20); WHITE BLOOD COUNT 5.5 K/uL (4.1-10.2)
[2017-12-06 05:23] LABS: ALBUMIN 3.8 g/dL (3.2-4.8); CHLORIDE 102 mEq/L (99-109); POTASSIUM 3.3 mEq/L (3.7-5.4); SODIUM 139 mEq/L (136-147)
[2017-12-06 05:25] LABS: GLUCOSE 112 mg/dL (70-99)
[2017-12-06 05:26] LABS: TOTAL PROTEIN 7.7 g/dL (6.4-8.3)
[2017-12-06 05:27] LABS: TOTAL BILIRUBIN 0.5 mg/dL (0.0-1.0)
[2017-12-06 05:28] LABS: SERUM ETHYL ALCOHOL < 10 mg/dL
[2017-12-06 05:29] LABS: CREATININE 0.7 mg/dL (0.6-1.3); GFR ESTIMATE (CALCULATED) > 59 mL/min/
[2017-12-06 05:30] LABS: ALKALINE PHOSPHATASE 67 IU/L (3-129)
[2017-12-06 05:31] LABS: AST (GOT) 179 IU/L (2-34); UREA NITROGEN (BUN) 9 mg/dL (9-23)
[2017-12-06 05:32] LABS: SALICYLATE < 5.0 MG/DL (15-30)
[2017-12-06 05:33] LABS: ACETAMINOPHEN (TYLENOL) < 10 mcg/mL (10-30); ALT (GPT) 206 IU/L (3-49)
[2017-12-06 05:59] LABS: APPEARANCE CLEAR ((CLEAR)); BILIRUBIN NEGATIVE; BLOOD NEGATIVE; COLOR YELLOW ((YELLOW)); GLUCOSE (STRIP) >=500; KETONES NEGATIVE; LEUKOCYTES NEGATIVE; NITRITE NEGATIVE; PROTEIN (STRIP) NEGATIVE; SPECIFIC GRAVITY 1.009 (1.000-1.030)
[2017-12-06 06:07] LABS: AMPHETAMINE NEGATIVE (500 ng/mL); BARBITURATES NEGATIVE (200 ng/mL); BENZODIAZEPINES PRESUMPTIVE POSITIVE (150 ng/mL); BUPRENORPHINE NEGATIVE (10 ng/mL); COCAINE PRESUMPTIVE POSITIVE (150 ng/mL); METHADONE NEGATIVE (200 ng/mL); METHAMPHETAMINE NEGATIVE (500 ng/mL); OPIATES (MORPHINE) PRESUMPTIVE POSITIVE (100 ng/mL); OXYCODONE NEGATIVE (100 ng/mL); PHENCYCLIDINE NEGATIVE (25 ng/mL); PROPOXYPHENE NEGATIVE (300 ng/mL); THC CANNABINOIDS PRESUMPTIVE POSITIVE (50 ng/mL); TRICYCLIC ANTIDEPRESSANTS NEGATIVE (300 ng/mL)
[2017-12-06 06:42] LABS: BENZODIAZEPINES, URINE SCREEN POSITIVE (200 ng/mL)
[2017-12-06 12:00] VITALS: BP 131/89
== END 2017-12-06 12:01 | disposition home or self-care (01) ==
LOC: EME 03:08
PROVIDERS: Emergency Medicine
DX: F14.10 Cocaine abuse, uncomplicated (principal); F13.10 Sedative, hypnotic or anxiolytic abuse, uncomplicated; F12.10 Cannabis abuse, uncomplicated; F11.23 Opioid dependence with withdrawal; R19.7 Diarrhea, unspecified; K92.1 Melena; R79.89 Other specified abnormal findings of blood chemistry; F60.3 Borderline personality disorder; F32.9 Major depressive disorder, single episode, unspecified; F41.9 Anxiety disorder, unspecified; E03.9 Hypothyroidism, unspecified; Z87.891 Personal history of nicotine dependence
CPT/HCPCS: 80053; 81003; 84999; 85027; 90839; 93005; 99281; 99285; G0480; J2060; J2405; J7030